=== PATIENT | female | born 1985 | race Caucasian/White ===

== ENCOUNTER 2016-10-12 07:33 | Day surgery (SDC) | payer BC ==
[~2016-10-12 07:33] MED LIST: Buffered Lidocaine 0.9% SYRIN* 5 ML/SYR SYRINGE INTRADERM ONE; Dexamethasone IV* 4 MG/ML 1 ML (4 MG) IV SLOW PU ONE; Famotidine IV* 10 MG/ML 2 ML (20 mg) IV ONE
[2016-10-12] MEDS ORDERED: Buffered Lidocaine 0.9% SYRIN* 5 ML/SYR SYRINGE ONE (08:03)
[2016-10-12] MEDS ORDERED: Dexamethasone IV* 4 MG/ML 1 ML (4 MG) ONE (08:03)
[2016-10-12] MEDS ORDERED: Famotidine IV* 10 MG/ML 2 ML (20 mg) ONE (08:03)
[2016-10-12] MEDS ORDERED: fentaNYL* 50 MCG/ML 2 ML VIAL (100 MCG VIAL) ONE ×2 (08:37→09:54)
[2016-10-12] MEDS ORDERED: oxyCODONE/Acetamin 5/325 MG* TAB PO PRN (08:39)
[2016-10-12] MEDS ORDERED: HYDROcodone/ACETAMIN 5-325 MG* 1 TAB PO PRN (08:39)
[2016-10-12] MEDS ORDERED: PROCHLORPERAZINE INJ 5 MG/ML 2 ML VIAL IV PRN (08:39)
[2016-10-12] MEDS ORDERED: Succinylcholine* 20 MG/ML 10 ML VIAL ONE (08:43)
[2016-10-12] MEDS ORDERED: Lidocaine 2% PF * 5 ML VIAL ONE (08:43)
[2016-10-12] MEDS ORDERED: Propofol* 10 MG/ML 20 ML BTL IV PUSH ONE (08:43)
[2016-10-12] MEDS ORDERED: Ondansetron INJ* 2 MG/ML VIAL ONE (09:15)
[2016-10-12] MEDS: fentaNYL* 50 MCG/ML 2 ML VIAL (100 MCG VIAL) IV PRN ×2 (09:55→10:25)
[2016-10-12] MEDS ORDERED: HYDROcodone/ACETAMIN 5-325 MG* 1 TAB ONE (10:10)
[2016-10-12 10:49] VITALS: BP 107/64
--- NOTE | 2016-10-12 12:03 | OP ---
OPERATIVE REPORT: DATE OF OPERATION: 10/12/16. DATE OF : [birth year]. SURGEON: Janak Vences MD. PRE-OP DIAGNOSIS: Chronic tonsillitis. POST-OP DIAGNOSIS: Chronic tonsillitis. OPERATIVE PROCEDURE: Tonsillectomy. BRIEF HISTORY: This 31-year-old with chronic recurring tonsillitis, elected for surgical therapy. DESCRIPTION OF PROCEDURE: The patient was taken to the operating room, general anesthetic was given , the patient was intubated. Tongue, mandible, and soft palate were retracted. Coblator was used t o remove tonsils. Once hemostasis was obtained, the patient was awakened and sent to recovery room in stable condition. Instrument and sponge count correct. Blood loss minimal. [id number]/[facility] #: [id number]
== END 2016-10-12 10:51 | disposition home or self-care (01) ==
LOC: OR 07:33
PROVIDERS: ATTEND Otolaryngology
DX: J35.01 Chronic tonsillitis (principal); F17.210 Nicotine dependence, cigarettes, uncomplicated
CPT/HCPCS: 81025; 88304; J0330; J1100; J2405; J2704; J3010

== ENCOUNTER 2019-04-02 13:23 | Emergency (ER) | payer BC ==
--- NOTE | 2019-04-02 13:58 | ED ---
Abdominal Pain/Female - HPI Summary HPI Summary: Patient is a 33 y/o F presenting to the ED for a chief complaint of intermittent RUQ abdominal pain for the last month. Patient is present with her . Patient states that she has intermittent abdominal pain that typically lasts for 4-5 days before resolving. The abdominal pain radiates to her lower back. Initially, she believed she had a "stomach bug." Most recently, the abdominal pain recurred from 03/26/19 to 03/29/19. During the episodes of abdominal pain, she notes decreased appetite. Patient also notes fatigue and lower back pain, but none at the present time. She states she has had the lower back pain in the past, prior to her abdominal pain onset. Recently, she also had ear ache and sore throat for the last 5 weeks, which she reports her children have also had. Patient denies fever, chills, dysuria, hematuria, vaginal bleeding, vaginal discharge, vaginal odor, or nausea. She denies that her abdominal pain is related to eating or certain times in her menstrual cycle. Her abdominal pain is somewhat alleviated by using marijuana. Patient saw her PCP for her symptoms and was recommended to be seen at [facility]. Patient admits tobacco use of 2 cigarettes a week, CBD oil use, and alcohol use, but no alcohol use in the last 6 weeks. LNMP was around 03/20/19 or 03/21/19. She denies a chance of . Patients medication reviewed this visit. - History of Current Complaint Chief Complaint: EDAbdPain Stated Complaint: ABDOMINAL PAIN PER PT Time Seen by Provider: 04/02/19 13:30 Hx Obtained From: Patient Hx Last Menstrual Period: 03/20/19 ?: No Onset/Duration: Sudden Onset Timing: Days - 4-5 days Severity Initially: Mild Severity Currently: None Pain Intensity: 0 Pain Scale Used: 0-10 Numeric Location: Discrete At: RUQ Radiates: Yes Radiates to: Back Aggravating Factor(s): Nothing Alleviating Factor(s): Spontaneous Resolution, Other: - Marijuana Associated Signs and Symptoms: Positive: Back Pain - Lower, Decreased Appetite. Negative: Fever, Urinary Symptoms - Negative dysuria or hematuria, Vaginal Bleeding, Vaginal Discharge, Nausea Allergies/Adverse Reactions: Allergies Allergy/AdvReac Type Severity Reaction Status Date / Time latex Allergy See Comment Verified 04/02/19 14:24 Penicillins Allergy Rash Verified 04/02/19 14:24 radha skins Allergy Intermediate contact Uncoded 10/12/16 08:06 dermatitis Home Medications: Home Medications Cannabidiol (CBD) Extract (NF) [Epidiolex (NF)] 0.5 ml PO DAILY 04/02/19 [ History Confirmed 04/02/19] PMH/Surg Hx/FS Hx/Imm Hx Previously Healthy: Yes Respiratory History: Reports: Other Respiratory Problems/Disorders - hx of pneumonia- 2x in last 5 years GI History: Denies: Hx Ulcer History: Denies: Hx Kidney Stones, Other Problems/Disorders - Negative ovarian cyst Sensory History: Reports: Hx Contacts or Glasses - both - use glasses day of surgery Denies: Hx Legally Blind, Hx Deafness, Hx Hearing Aid Opthamlomology History: Reports: Hx Contacts or Glasses - both - use glasses day of surgery Denies: Hx Legally Blind EENT History: Denies: Hx Deafness Neurological History: Reports: Hx Headaches, Hx Migraine - Cancer History Hx Chemotherapy: No - Surgical History Surgical History: Yes Surgery Procedure, Year, and Place: wisdom teeth removed 2004, tonsillectomy 2017 Hx Anesthesia Reactions: No Infectious Disease History: No Infectious Disease History: Denies: Traveled Outside the [place] in Last 30 Days - Family History Known Family History: Positive: Other - Diverticulitis, grandmother - Social History Occupation: Unemployed Lives: With Family Alcohol Use: Weekly Hx Substance Use: No Substance Use Type: Reports: None Hx Tobacco Use: Yes Smoking Status (MU): Light Every Day Tobacco Smoker Type: Cigarettes Amount Used/How Often: smokes a pack every 2 weeks Review of Systems Positive: Fatigue, Other - Positive decreased appetite. Negative: Fever, Chills Positive: Sore Throat, Ear Ache Positive: Abdominal Pain - RUQ that radiates to the back. Negative: Nausea Negative: dysuria, discharge - Vaginal, hematuria, other - Negative vaginal bleeding or vaginal odor Positive: Myalgia - Lower back, none at the present time All Other Systems Reviewed And Are Negative: Yes Physical Exam Triage Information Reviewed: Yes Vital Signs On Initial Exam: Initial Vitals Temp Pulse Resp BP Pulse Ox 98.6 F 94 18 130/94 99 04/02/19 13:25 04/02/19 13:25 04/02/19 13:25 04/02/19 13:25 04/02/19 13:25 Vital Signs Reviewed: Yes Procedures - Sedation Patient Received Moderate/Deep Sedation with Procedure: No Diagnostics - Vital Signs Vital Signs Temp Pulse Resp BP Pulse Ox 04/02/19 13:25 98.6 F 94 18 130/94 99 - Laboratory Result Diagrams: 04/02/19 15:27 04/02/19 15:27 Lab Statement: Any lab studies that have been ordered have been reviewed, and results considered in the medical decision making process. - CT Abdomen/Pelvis CT CT Interpretation Completed By: Radiologist Summary of CT Findings: Abdomen/Pelvis CT IMPRESSION: 1. 1.8 CM CYSTIC STRUCTURE IN THE RIGHT ADNEXA (COULD BE BETTER CHARACTERIZED BY PELVIC ULTRASOUND). 2. UNREMARKABLE APPENDIX. MILD RIGHT GREATER THAN LEFT HYDROURETER WITH CALCULUS IDENTIFIED. Reviewed by Dr. Davey. - Ultrasound Abdomen US Ultrasound Interpretation Completed By: Radiologist Summary of Ultrasound Findings: Abdomen US IMPRESSION: NEGATIVE EXAM. Reviewed by Dr. Davey. Re-Evaluation - Re-Evaluation First Eval Re-Evaluation Time: 17:48 Change: Improved Comment: At 17:48, patient is feeling much better. She declines an US for her ovarian cyst. She will be given Bactrim for her UTI, follow up with her PCP, and return if her symptoms change. Abdominal Pain Fem Course/Dx - Provider Notifications Discussed Care Of Patient With: Marvin Mcdowell - At 18:14, Dr. Mavrin Mcdowell will create an addendum for the imaging report. Time Discussed With Above Provider: 18:14 Discharge ED - Sign-Out/Discharge Documenting (check all that apply): Patient Departure - Discharge - Discharge Plan Condition: Stable Disposition: HOME Prescriptions: Sulfamethox/Trimethoprim DS* [Bactrim DS 800/160 TAB*] 1 tab PO BID #14 tab Patient Education Materials: Ovarian Cyst (ED), Urinary Tract Infection in Women (ED) Referrals: Neema Jones MD [Primary Care Provider] - Additional Instructions: - Okay to alternate ibuprofen (Advil, Motrin) 600mg and Tylenol (acetaminophen) 1000mg every 3 hours for pain or fever. Take with food. Do NOT take for more than 4-5 days. Stay well hydrated. Drink plenty nonalcoholic, non-caffeinated beverages - Eat regular, healthy meals. - Take antibiotics as prescribed until gone. Your urine has been sent for additional testing. If you need different treatment you receive a call from a care prepared foods team leader. This may take 2-3 days to come back. - As discussed, you have an ovarian cyst. At this time it does not appear to need any treatment. It's recommended you follow-up and discuss with her primary care provider. Primary major side for some further evaluate. - If you have recurrence of severe pain, fever, vomiting, or any other concerns is recommended she return to the emergency department or contact her primary care provider for further evaluation and treatment. - Attestation Statements Document Initiated by Mejiae: Yes Documenting Scribe: Judy Rene Provider For Whom Daliaibe is Documenting (Include Credential): Radha Davey MD Scribe Attestation: I, Judy Rene, scribed for Radha Davey MD on 04/02/19 at 1832. Status of Scribe Document: Ready
[2019-04-02] MEDS ORDERED: NS 0.9% 1000 ML** 1,000 ML IV ONE (15:04)
[2019-04-02 15:30] LABS: Urine Appearance Clear; Urine Bilirubin Negative (Negative); Urine Blood Negative (Negative); Urine Color Straw; Urine Glucose Negative (Negative); Urine Ketones Negative (Negative); Urine Nitrite Negative (Negative); Urine Protein Negative (Negative); Urine Specific Gravity 1.004 (1.010-1.030); Urine Urobilinogen Negative (Negative)
[2019-04-02 15:34] LABS: Urine Bacteria Absent (Absent); Urine Red Blood Cell 1+(3-5/hpf) (Absent); Urine Squamous Epithelial Cell Present (Absent); Urine White Blood Cell 1+(6-10/hpf) (Absent)
[2019-04-02 15:36] LABS: ABS Basophils 0.1 10^3/ul (0-0.2); ABS Eosinophils 0.1 10^3/ul (0-0.6); ABS Lymphocytes 1.4 10^3/ul (1.0-4.8); ABS Monocytes 0.6 10^3/ul (0-0.8); ABS Neutrophils 4.3 10^3/ul (1.5-7.7); Eosinophil % 1.1 %; Hematocrit 37 % (35-47); Hemoglobin 12.1 g/dL (12.0-16.0); Mean Corpuscular HGB Conc 33 g/dL (31-36); Mean Corpuscular Hemoglobin 31 pg (27-31); Mean Corpuscular Volume 93 fL (80-97); Mean Platelet Volume 8.3 fL (7.4-10.4); Platelet Count 215 10^3/uL (150-450); Red Blood Count 3.95 10^6 /uL (3.70-4.87); Red Cell Distribution Width 13 % (10-15); White Blood Count 6.4 10^3/uL (3.5-10.8)
[2019-04-02 16:08] LABS: Albumin 4.7 g/dL (3.2-5.2); Anion Gap 5 mmol/L (2-11); CO2 Carbon Dioxide 27 mmol/L (22-32); Calcium 9.1 mg/dL (8.6-10.3); Chloride 108 mmol/L (101-111); Magnesium 2.1 mg/dL (1.9-2.7); Potassium 4.1 mmol/L (3.5-5.0); Sodium 140 mmol/L (135-145)
[2019-04-02 16:14] LABS: ALT 12 U/L (7-52); AST 15 U/L (13-39); Alkaline Phosphatase 33 U/L (34-104); BUN/Creatinine Ratio 9.8 (8-20); Blood Urea Nitrogen 6 mg/dL (6-24); EGFR African American 138.4 (>60); EGFR Non-African American 114.4 (>60); Globulin 2.3 g/dL (2-4); Glucose 91 mg/dL (70-100)
[2019-04-02] MEDS ORDERED: Iohexol 300* (CONTRAST) 10 ML SDV IV ONE (17:22)
[2019-04-02 17:32] LABS: HCG Pregnancy < 0.60 mIU/mL
[2019-04-02 18:30] VITALS: BP 118/75
[2019-04-04 16:17] LABS: EBV Capsid Ag IgG Ab Positive (Negative); EBV Capsid Ag IgM Ab Negative (Negative); Epstein-Barr Nuclear Antigen Positive (Negative)
--- NOTE | 2019-04-05 07:33 | ED ---
Imaging and Labs Follow Up Follow Up Type: Labs/Cultures Labs/Culture Result: Monoscreen negative IGG positive IGM negative Previous infection, no new infection evident Patient Communication/Plan: abd pain Patient Communication/Plan: pt given abx
== END 2019-04-02 18:30 | disposition home or self-care (01) ==
LOC: ED 13:23
DX: R10.11 Right upper quadrant pain (principal); Z88.0 Allergy status to penicillin; R53.83 Other fatigue; M54.5 Low back pain; J02.9 Acute pharyngitis, unspecified; F17.210 Nicotine dependence, cigarettes, uncomplicated
CPT/HCPCS: 36415; 74177; 76705; 80053; 81003; 81015; 83690; 83735; 84702; 85025; 86308; 86664; 86665; 87086; 96360; 99282; Q9967